=== PATIENT | male | born 1945 | race Hispanic/Latino ===

== ENCOUNTER 2020-12-08 05:50 | Day surgery (SDC) | payer MEDICARE, OTHER ==
[2020-12-07 11:58] VITALS: BMI 33.0
[2020-12-08] MEDS ORDERED: Nitroglycerin 100MG/250ML BOT 0 ML ONE (06:34)
[2020-12-08] MEDS ORDERED: Lidocaine 1% (PF) 30 ML VIAL ONE (06:34)
[2020-12-08] MEDS ORDERED: Verapamil 5 MG/2 ML VIAL ONE (06:34)
[2020-12-08] MEDS ORDERED: Adenosine 6 MG/2 ML VIAL ONE (06:34)
[2020-12-08] MEDS ORDERED: Heparin 10,000 UNITS/ 10 ML VIAL ONE (06:34)
[2020-12-08] MEDS ORDERED: Fentanyl 100 MCG/2 ML VIAL ONE (07:19)
[2020-12-08] MEDS ORDERED: Midazolam HCl 2 mg/2 ml Vial ONE (07:19)
[2020-12-08] MEDS ORDERED: Iopamidol 370 76% 100 ML VIAL ONE (08:52)
== END 2020-12-08 12:19 | disposition home or self-care (01) ==
LOC: CCL 05:50
PROVIDERS: ATTEND Internal Medicine Cardiovascular Disease
PROC: 4A023N7 Measurement of Cardiac Sampling and Pressure, Left Heart, Percutaneous Approach (ICD-10-PCS; principal; 2020-12-08)
PROC: B2111ZZ Fluoroscopy of Multiple Coronary Arteries using Low Osmolar Contrast (ICD-10-PCS; 2020-12-08)
DX: I35.0 Nonrheumatic aortic (valve) stenosis (principal); I25.10 Atherosclerotic heart disease of native coronary artery without angina pectoris; E78.5 Hyperlipidemia, unspecified; K21.9 Gastro-esophageal reflux disease without esophagitis; E03.9 Hypothyroidism, unspecified; N40.0 Benign prostatic hyperplasia without lower urinary tract symptoms; Z79.899 Other long term (current) drug therapy; Z88.1 Allergy status to other antibiotic agents
CPT/HCPCS: 76942; 93456; 93561; 99152; 99153; J0153; J1644; J2001; J2250; J3010; Q9967

== ENCOUNTER 2023-06-22 08:40 | Observation (INO) | payer MEDICARE, OTHER ==
[2023-06-22 09:30] LABS: #Eosinphils 0.2 thou/uL (0.0-0.7); #Monocytes 1.1 thou/uL (0.11-0.59); #Neutrophils 10.5 thou/uL (1.40-6.50); %Basophils 0.2 % (0.0-1.0); %Eosinophils 1.5 % (0.0-10.0); %Lymphocytes 3.8 % (21.0-51.0); %Monocytes 8.9 % (0.0-10.0); Hematocrit 48.6 % (42.0-52.0); Hemoglobin 16.7 g/dL (14.0-18.0); Mean Corpuscular HGB CONC 34.4 g/dL (32.0-36.0); Mean Corpuscular Hemoglobin 33.3 pg (27.0-31.0); Mean Platelet Volume 11.2 fL (7.4-10.4); Platelet Count 163 10x3/uL (130-400); RBC Distribution Width 13.5 % (11.5-14.5); Red Blood Cell (RBC) Count 5.01 mill/uL (4.70-6.10); White Blood Cell (WBC) Count 12.3 10x3/uL (4.8-10.8)
[2023-06-22 09:50] LABS: ALT (SGPT) 31 U/L (8-55); AST (SGOT) 28 U/L (5-34); Albumin 3.9 g/dL (3.4-4.8); Alkaline Phosphatase 118 U/L (40-110); BUN (Urea Nitrogen) 27 mg/dL (8.4-25.7); Bilirubin, Total 2.3 mg/dL (0.2-1.2); Calc. Creatinine Clearance 0 mL/min (70-130); Calcium 8.8 mg/dL (7.8-10.44); Carbon Dioxide 24 mmol/L (23-31); Chloride 101 mmol/L (98-107); Estimated GFR 57; Globulin 3.3 g/dL (2.4-3.5); Glucose 121 mg/dL (83-110); Protein, Total 7.2 g/dL (5.8-8.1); Sodium 134 mmol/L (136-145)
[2023-06-22 10:00] LABS: Critical Call Chem Troponin I NUR.LM21@0957; Troponin I 0.429 ng/mL (< 0.028)
[2023-06-22] MEDS ORDERED: Aspirin Chewable 81 MG TAB ONE (10:10)
[2023-06-22 10:37] LABS: Anion Gap 13 mmol/L (10-20)
[2023-06-22] MEDS ORDERED: Enoxaparin 80 MG (0.8 mL) SYRINGE SC SCH (11:30)
[2023-06-22] MEDS ORDERED: Enoxaparin 100 MG (1 mL) SYRINGE ONE (11:55)
[2023-06-22 12:09] LABS: Critical Call Chem Troponin I RESULT DECREASING; Troponin I 0.364 ng/mL (< 0.028)
[2023-06-22] MEDS ORDERED: Iopamidol-370 76% 500 ML MDV (1 ML CHARGE) ONE (12:54)
[2023-06-22 14:01] VITALS: BMI 34.4
[2023-06-22 15:28] LABS: Critical Call Chem Troponin I RESULT DECREASING; Troponin I 0.249 ng/mL (< 0.028)
[2023-06-22] MEDS: Enoxaparin 100 MG (1 mL) SYRINGE SC SCH (21:41)
[2023-06-22] MEDS: Atorvastatin Calcium 40 MG TAB PO SCH (21:41)
[2023-06-23 07:45] LABS: #Eosinphils 0.5 thou/uL (0.0-0.7); #Monocytes 1.3 thou/uL (0.11-0.59); %Basophils 0.4 % (0.0-1.0); %Eosinophils 5.5 % (0.0-10.0); %Lymphocytes 41.3 % (21.0-51.0); %Neutrophils 36.3 % (42.0-75.0); Hematocrit 46.4 % (42.0-52.0); Hemoglobin 15.6 g/dL (14.0-18.0); Mean Corpuscular HGB CONC 33.6 g/dL (32.0-36.0); Mean Corpuscular Hemoglobin 32.5 pg (27.0-31.0); Mean Corpuscular Volume 96.7 fl (78.0-98.0); Platelet Count 141 10x3/uL (130-400); RBC Distribution Width 13.7 % (11.5-14.5); White Blood Cell (WBC) Count 8.3 10x3/uL (4.8-10.8)
[2023-06-23 08:01] LABS: Anion Gap 9 mmol/L (10-20); BUN (Urea Nitrogen) 20 mg/dL (8.4-25.7); Calc. Creatinine Clearance 83 mL/min (70-130); Calcium 8.5 mg/dL (7.8-10.44); Carbon Dioxide 26 mmol/L (23-31); Cardiac Risk 2.6 (Less than 4.5); Chloride 103 mmol/L (98-107); Cholesterol 105 mg/dl (< 200 Desired); Estimated GFR 78; Glucose 108 mg/dL (83-110); HDL Cholesterol 41 mg/dL (>60 Neg Risk); LDL Cholesterol, Calculated 44 mg/dL; Potassium 3.4 mmol/L (3.5-5.1); Sodium 135 mmol/L (136-145); Triglycerides 99 mg/dL (Less than 150)
[2023-06-23] MEDS: Enoxaparin 100 MG (1 mL) SYRINGE SC SCH ×2 (10:06→21:46)
[2023-06-23] MEDS: Aspirin Chewable 81 MG TAB PO SCH (10:06)
[2023-06-23] MEDS ORDERED: CATH FS PRN (12:00)
[2023-06-23] MEDS: Atorvastatin Calcium 40 MG TAB PO SCH (21:46)
[2023-06-23] MEDS ORDERED: Tamsulosin HCl 0.4 MG CAP PO SCH (22:15)
[2023-06-24] MEDS ORDERED: Electrolyte Replacement Protocol 1 EACH FS SCH (01:15)
[2023-06-24] MEDS: Aspirin Chewable 81 MG TAB PO SCH (05:56)
[2023-06-24] MEDS ORDERED: Levothyroxine Sodium 25 MCG TAB PO SCH (06:00)
[2023-06-24] MEDS ORDERED: Heparin 10,000 UNITS/ 10 ML VIAL ONE (07:44)
[2023-06-24] MEDS ORDERED: fentaNYL 50 mcg/mL 1 mL Vial ONE (08:10)
[2023-06-24] MEDS ORDERED: Midazolam HCl 2 mg/2 ml Vial ONE (08:11)
[2023-06-24] MEDS ORDERED: Nitroglycerin 50 MG/250 ML BOT 250 ML ONE (08:11)
[2023-06-24] MEDS ORDERED: Acetaminophen/Codeine 30-300mg Tablet PO PRN ×2 (08:54)
[2023-06-24] MEDS ORDERED: Nitroglycerin 0.4 MG TAB (25 Tab Bottle) SL PRN (08:54)
[2023-06-24] MEDS ORDERED: Sodium Chloride 0.9% 200 ML IV PRN (08:54)
[2023-06-24] MEDS ORDERED: Sodium Chloride 0.9% 1,000 ML IV SCH (09:00)
[2023-06-24] MEDS ORDERED: Iopamidol 370 76% 100 ML VIAL ONE (09:11)
[2023-06-24 13:50] LABS: Potassium 3.6 mmol/L (3.5-5.1)
[2023-06-24 15:58] VITALS: BP 122/58; TEMP 97.9
[2023-06-24] MEDS ORDERED: Tamsulosin HCl 0.4 MG CAP PO SCH (21:00)
== END 2023-06-24 16:00 | disposition home or self-care (01) ==
LOC: ERS 08:40 → ERHOLD 11:27 → 2SW 19:35
PROVIDERS: ADMIT Hospitalist; ATTEND Internal Medicine
PROC: B201YZZ Plain Radiography of Multiple Coronary Arteries using Other Contrast (ICD-10-PCS; principal; 2023-06-24)
DX: I25.10 Atherosclerotic heart disease of native coronary artery without angina pectoris (principal); I21.4 Non-ST elevation (NSTEMI) myocardial infarction; I10 Essential (primary) hypertension; R94.5 Abnormal results of liver function studies; Z96.652 Presence of left artificial knee joint; Z98.890 Other specified postprocedural states; Z79.899 Other long term (current) drug therapy; Z79.890 Hormone replacement therapy; Z88.8 Allergy status to other drugs, medicaments and biological substances; Z79.82 Long term (current) use of aspirin
CPT/HCPCS: 71046; 71275; 74174; 76705; 80048; 80053; 80061; 83605; 84132; 84484 ×2; 85025 ×2; 93005 ×2; 93306; 93454; 93970; 94760; 96372 ×3; 99285; C1769 ×3; C1887 ×2; C1894; G0378 ×3; J3010; 36415; 93010; 99152; J1644; J1650; J2250; J7050; Q9967